=== PATIENT | male | born 2000 | race Caucasian/White ===

== ENCOUNTER 2020-04-20 13:09 | Emergency (ER) | payer OTHER, SELFPAY ==
--- NOTE | 2020-04-20 13:46 | HMH.EDUTC ---
[facility] Disposition Clinical Impression: Exposure to COVID-19 virus Disposition: Home, Self-Care Condition on Discharge: Good Instructions: Preventing the Spread of Coronavirus Discharge Instructions Additional Instructions: You have been tested for COVID19. These results generally take 48-72 hours to receive results. Please act as if you are positive and isolate yourself until results are received. Referrals: PCP,No [Primary Care Provider] - Time of Disposition: 13:53 Medical Decision Making - Herrera Inquiry Pt receiving controlled substance: No [facility] HPI - General Stated complaint: covid test Time Seen by Provider: 04/20/20 13:47 - History of Present Illness Provider Complaint: Coworkers children tested positive for COVID19 this am. Coworker tested negative, but would like to be tested. Denies fever, headache, runny nose, sore throat, loss of taste or smell, nausea, vomiting or diarrhea, cough. Onset (ago): day(s) (1) Relieving factors: none Exacerbating factors: none Associated symptoms: denies other symptoms Treatments prior to arrival: none - Related Data Allergies Allergy/AdvReac Type Severity Reaction Status Date / Time No Known Allergies Allergy Verified 04/20/20 13:47 [facility] History - Hepatitis A Screen Attestation statement:: This patient has been screened for Hepatitis A risk factors. I have reviewed the patient's past medical history: Yes ROS Obtained: Yes All systems reviewed & no additional complaints - Constitutional Constitutional: Denies body ache, Denies chills, Denies fatigue, Denies fever(s), Denies malaise - Eyes Eyes: Denies eye discharge - ENT Ears, Nose, Mouth, and Throat: Denies dizziness, Denies facial pain, Denies nasal discharge, Denies sore throat - Respiratory Respiratory: No cough, No dyspnea - Gastrointestinal Gastrointestingal: Denies: loose stools, vomiting Physical Exam - General General appearance: alert, in no apparent distress - Head Head exam: atraumatic, normocephalic - Eye Eye exam: Present: PERRL - ENT ENT exam: Present: normal oropharynx - Neck Neck exam: Present: normal inspection. Absent: lymphadenopathy - Chest Chest inspection: Present: normal inspection, symmetric chest wall rise - Respiratory Respiratory exam: Present: normal lung sounds bilaterally - Cardiovascular Cardiovascular exam: Present: regular rate, normal rhythm - Extremities Exam Extremities exam: Present: normal inspection - Neurological Exam Neurological exam: Present: alert, oriented X3 - Psychiatric Psychiatric exam: Present: normal affect, normal mood - Skin Skin exam: Present: warm, dry, intact
[2020-04-20 13:47] VITALS: BMI 25.5
[2020-04-20 13:55] VITALS: BP 141/83; PULSE 70; RESP 14; TEMP 37.2; O2SAT 100; BMI 25.5
[2020-04-20 14:09] VITALS: BP 141/83; PULSE 70; RESP 14; TEMP 37.2; O2SAT 100
== END 2020-04-20 14:17 | disposition home or self-care (01) ==
LOC: UTC 13:59
PROVIDERS: Emergency Provider Physician Assistant
DX: Z20.828 Contact with and (suspected) exposure to other viral communicable diseases (principal)
CPT/HCPCS: 99201; U0003